=== PATIENT | female | born 1975 | race Caucasian/White ===

== ENCOUNTER → 2020-09-16 | Day surgery (SDC) | payer OTHER ==
[~2020-09-16] MED LIST: ASPIRIN EC81 MG PO; FEOSOL325 MG PO; IBUPROFEN800 M1 PO; KETOROLAC TROME10 MG PO; MEGACE40 MG PO; METOPROLOL TAR100 MG PO; NORCO 5-325 TA1 EAC1 PO; NORVASC5 MG PO; ONDANSETRON ODT4 MG SL; TERAZOSIN HCL1 MG PO; VENTOLIN HFA IN18 GM INH; VITAMIN C500 M2 PO; VITAMIN D250000 UNIT PO; ZESTORETIC 20-1 EAC1 PO; ZOFRAN4 MG PO
[2020-09-16 11:54] LABS: HCG (URINE) SCREEN NEGATIVE (NEGATIVE)
== END | disposition home or self-care (01) ==
LOC: FAS 08:00
PROVIDERS: Obstetrics & Gynecology
DX: N93.9 Abnormal uterine and vaginal bleeding, unspecified (principal); D64.9 Anemia, unspecified; G47.30 Sleep apnea, unspecified; F41.9 Anxiety disorder, unspecified; F31.9 Bipolar disorder, unspecified; I10 Essential (primary) hypertension; E78.1 Pure hyperglyceridemia; M19.90 Unspecified osteoarthritis, unspecified site; E66.9 Obesity, unspecified; Z68.43 Body mass index [BMI] 50.0-59.9, adult; Z87.891 Personal history of nicotine dependence; Z79.82 Long term (current) use of aspirin; Z79.899 Other long term (current) drug therapy; Z88.0 Allergy status to penicillin; Z88.1 Allergy status to other antibiotic agents; Z88.8 Allergy status to other drugs, medicaments and biological substances
CPT/HCPCS: 84703; 86850; 86900; 86901; 93005; J1100; J1885; J2250; J2405; J2704; J3010; J7120